=== PATIENT | female | born 1995 | race Caucasian/White ===

== ENCOUNTER 2018-06-16 22:20 | Emergency (ER) | payer OTHER ==
[2018-06-16 22:36] VITALS: BP 128/79
--- NOTE | 2018-06-16 22:43 | ED Physician Documentation ---
PD HPI OPHTHO - Stated complaint Stated Complaint: LT EYE PX - Chief complaint Chief Complaint: Heent - History obtained from History obtained from: Patient - History of Present Illness Timing - onset: How many days ago (3) Timing - duration: Days Timing - details: Gradual onset, Constant Location: Left Quality / character: Aching Associated symptoms: FB sensation. No: Redness, Swelling, Photophobia, Headache Similar symptoms before: Has not had sx before Recently seen: Not recently seen - Additional information Additional information: felt as though she "got metal shaving" (per patient) into left eye 3 weeks ago when doing some drilling. She had mild discomfort that resolved rapidly and she thus did not seek medical attention. 3 days ago, she developed aching pain left eye with mild FB sensation. She has not been undertaking any activity that is similar to what she was doing when she had the incident 3 weeks ago. She wears glasses for distance vision. Review of Systems Eyes: reports: Irritation. denies: Loss of vision, Decreased vision, Photophobia, Discharge Neurologic: denies: Headache PD PAST MEDICAL HISTORY - Past Medical History Past Medical History: No - Present Medications Home Medications: Ambulatory Orders Medication Instructions Recorded Confirmed Dextroamphetamine/Amphetamine 1 tab PO DAILY 06/16/18 06/16/18 [Adderall 30 mg Tablet] - Allergies Allergies/Adverse Reactions: Allergies Allergy/AdvReac Type Severity Reaction Status Date / Time No Known Drug Allergies Allergy Verified 06/16/18 22:35 PD ED PE NORMAL - Vitals Vital signs reviewed: Yes - General General: Alert and oriented X 3, No acute distress, Well developed/nourished - HEENT HEENT: PERRL, EOMI PD ED PE EXPANDED - HEENT HEENT Visual: 1 - deformity (punctate fluorescein uptake) - Eyes Eyes: Corneal abrasion, Fluorescein uptake, Anterior chambers clear. No: Conj/sclera FB (including with slit lamp exam), Subconj hemorrhage, Hyphema Results - Vitals Vitals: Vital Signs - 24 hr 06/16/18 22:32 Temperature 36.0 C L Heart Rate 100 Respiratory 16 Rate Blood Pressure 128/79 O2 Saturation 100 Oxygen O2 Source Room air PD MEDICAL DECISION MAKING - ED course Complexity details: considered differential, d/w patient Departure - Departure Disposition: 01 Home, Self Care Clinical Impression: Corneal abrasion Qualifiers: Encounter type: initial encounter Laterality: left Qualified Code(s): S05.02XA - Injury of conjunctiva and corneal abrasion without foreign body, left eye, initial encounter Condition: Good Instructions: ED Eye Injury Corneal Abrasion Comments: Use the antibiotic drops (provided to you tonight) as follows: 1 drop in left eye four times per day for 5 days. Your symptoms should resolve within the next 2 days. Follow up with your doctor by the end of this week if symptoms do not resolve. Discharge Date/Time: 06/16/18 23:35
[2018-06-16] MEDS ORDERED: PROPARACAINE 0.5% OPHTH DROPS 15 ML LEFTEYE STA (22:49)
[2018-06-16] MEDS ORDERED: POLYMYXIN B/TRIMETH OPHTH DROPS LEFTEYE STA (23:15)
== END 2018-06-16 23:35 | disposition home or self-care (01) ==
LOC: ED 22:20
DX: S05.02XA Injury of conjunctiva and corneal abrasion without foreign body, left eye, initial encounter (principal); X58.XXXA Exposure to other specified factors, initial encounter; Y93.89 Activity, other specified; Y92.89 Other specified places as the place of occurrence of the external cause; Y99.0 Civilian activity done for income or pay
CPT/HCPCS: 99283; A9270; J3490